=== PATIENT | male | born 2000 | race Two or more races ===

== ENCOUNTER 2025-04-18 16:14 | Emergency (ER) | payer OTHER, SELFPAY ==
[2025-04-18 16:23] VITALS: BP 124/84
[2025-04-18 16:38] LABS: Hematocrit 44.7 % (39.0-52.0); Hemoglobin 15.9 g/dL (13.0-18.0); Mean Corp Hgb Conc. 35.6 g/dL (33.0-37.0); Mean Corpuscular Volume 83.4 fL (80.0-94.0); Nucleated Red Blood Cells % 0 % (-); Platelet Count 222 10^3/uL (130-400); Red Cell Dist. Width 12.4 % (11.5-14.5)
[2025-04-18 16:47] LABS: INR 0.97; PT 13.4 Sec (11.4-14.6)
[2025-04-18 16:59] LABS: ALT (SGPT) 34 U/L (0-50); AST (SGOT) 27 U/L (17-59); Albumin 4.9 g/dl (3.5-5.0); Alkaline Phosphatase 48 U/L (38-126); Blood Urea Nitrogen 10 mg/dl (9-20); Calcium 9.6 mg/dl (8.4-10.2); Carbon Dioxide 28 mmol/L (22-30); Glucose 97 mg/dl (70-99); Total Protein 7.7 g/dl (6.3-8.2); eGFR > 60.00
[2025-04-18 17:08] LABS: Chloride 105 mmol/L (98-107); Potassium 5.0 mmol/L (3.5-5.1); Sodium 139 mmol/L (135-145)
--- NOTE | 2025-04-18 19:22 | ED.GENMED ---
History of Present Illness
General
Chief Complaint: Rectal Bleeding
Source: patient
Exam Limitations: none
Time Seen by Provider: 04/18/25 19:02
Nursing documentation reviewed up to this point in time: agreed with
History of Present Illness
History of Present Illness:
24-year-old male with past medical history of dermatitis presents to the ER for evaluation of rectal bleeding. Patient reports that he has been dealing with issues with dermatitis and saw test engine operator this week for it. He was prescribed
doxycycline and tacrolimus cream as well as mupirocin ointment. He says that over the past 24 hours he has developed some bloody stools. He describes blood coating his stools with blood on toilet tissues. He does have some slight burning at the
end of defecation. He denies having been constipated and has not had diarrhea. He denies any other complaints. Denies being on any blood thinners. No similar symptoms in the past.
Review of Systems
Review of Systems
All Other Systems: ROS reviewed and negative except as documented in HPI and ROS
ABD/GI: Reports bloody stools; Denies abdominal pain, nausea, vomiting, diarrhea or constipated
Phy Exam
Physical Exam
Physical Exam:
General: Well appearing and non-toxic
HEENT: protecting airway
Neck: appears supple
CV: No evidence of cyanosis
Resp: No accessory muscle use
Abd: Non-distended, nontender
Rectal: No visible external hemorrhoids or anal fissure, no palpable internal hemorrhoids or rectal masses, no blood in the rectal vault
Extremities: No deformities
Neuro: Alert
Psych: Normal affect
Skin: Intact
Scores
Heart Failure Risk
Heart Failure Risk Score: Not Applicable
Heart Score for Chest Pain Patients
STEMI patient?: Not applicable
Withdrawal Assessment of Alcohol
Withdrawal Assessment Completed?: Not applicable
Course
Orders/Labs/Results
Orders:
Orders
04/18/25 16:30
Complete Blood Count/With Diff Urgent
Comprehensive Metabolic Panel Urgent
Prothrombin Time Urgent
Abnormal Lab Results
04/18/25
16:30
Abs Immat Gran (auto) 0.1 H 10^3/uL
(0-0.05)
Absolute Monos (auto) 0.7 H 10^3/uL
(0.1-0.6)
Immature Gran % 0.6 H %
(0-0.5)
Lymphocytes % 16.0 L %
(20.5-51.1)
04/18/25 16:30
04/18/25 16:30
Vital Signs
Initial and Last Documented VS:
Initial Vital Signs
Temp Pulse Resp BP Pulse Ox
36.8 C 103 17 124/84 99
04/18/25 16:23 04/18/25 16:23 04/18/25 16:23 04/18/25 16:23 04/18/25 16:23
Last Documented Vital Signs
Temp Pulse Resp BP Pulse Ox
36.8 C 103 17 124/84 99
04/18/25 16:23 04/18/25 16:23 04/18/25 16:23 04/18/25 16:23 04/18/25 16:23
MDM/Problems Addressed
Differential Diagnosis Includes:
Hemorrhoid, anal fissure, diverticular bleed or other source of lower GI bleed
MDM/Problems Addressed:
24-year-old male presents with rectal bleeding as described above. He reports blood coating the stool and on toilet tissue when he wipes. Vitals and exam as above. Suspect by history likely this is internal hemorrhoidal bleed although he does
report some slight burning with defecation could have a small anal fissure as well. We sent off labs including a CBC which shows normal platelets, normal hemoglobin. Chemistry unremarkable. Will trial topical rectal cream, stable for discharge to
follow-up with PCP also provided GI referral as needed. Patient comfortable with this plan. We spoke about high-fiber diet and good hydration as well to avoid hard stools. All questions answered.
*Pulse Oximetry
SaO2: 99
Oxygen Mode of Delivery: Room air
Patient hypoxic: no (99%)
*Critical Care Note
Total Time (30-74mins, 75-104mins- exclusive of procedures): Not Applicable
Data Reviewed
Source: patient and family (Mother)
ED Attending Note
-
Portions of this chart may have been created with voice recognition software.� Occasional wrong word or��sound alike� substitutions may have occurred due to the inherent limitations of voice recognition software.
Discharge Plan
Departure
Patient Disposition: Home (Routine Discharge)
Date of Disposition: 04/18/25
Time of Disposition: 19:19
Patient with high blood pressure during this ER visit?: No
Discharge Problem:
Rectal bleeding
Instructions: Bloody Stools, Adult (DC)
Prescriptions:
New
hydrocortisone-pramoxine 1-1 % cream
1 applic [place] QID Qty: 30 0RF
Referrals:
Mary Ellen Espinoza MD [Active, Gastroenterology] - Call in 1-3 days for appt
Referral Note: GI specialist
Activity Restrictions/Additional Instructions:
Thank you for visiting the Emergency Department at [facility].
1. Please schedule a follow up appointment as directed. Call first thing tomorrow morning to make an appointment.
2. If indicated, please take your medications as instructed and indicated on discharge paperwork.
3. If any of your symptoms do not improve, or persist, or become more severe within 6-12 hours, please return to the emergency department for further care.
4. Please return to the emergency department if you develop a headache, neck pain/stiffness, fever greater than 100.4F, chest pain, shortness of breath, persistent nausea, vomiting, slurred speech, difficulty walking, numbness/tingling, weakness,
signs of infection or any other symptoms that are worrisome to you.
Please call [phone] if you have any questions.
Interventions
Interventions:
*Risk Screen - Suicide Last Done: 04/18/25 16:26
*General Assessment Last Done: 04/18/25 16:26
*Neglect/Abuse Screening Last Done: 04/18/25 16:26
*ED COVID-19 Vaccine History Last Done: 04/18/25 16:26
Discharge Date and Time
Print Language: [id number]
== END 2025-04-18 20:10 | disposition home or self-care (01) ==
LOC: EMR 16:14
PROVIDERS: Emergency Medicine; EMERGENCY PHYSICIAN Emergency Medicine
DX: K62.5 Hemorrhage of anus and rectum (principal); L30.9 Dermatitis, unspecified
CPT/HCPCS: 99283; 80053; 85025; 85610